=== PATIENT | male | born 1990 | race American Indian/Alaskan Native ===

== ENCOUNTER 2017-10-06 03:32 | Emergency (ER) | payer BC ==
[2017-10-06 04:28] VITALS: BP 126/78
== END 2017-10-06 07:37 | disposition left against medical advice (07) ==
LOC: ED 03:32
DX: H57.8 Other specified disorders of eye and adnexa (principal); Z53.21 Procedure and treatment not carried out due to patient leaving prior to being seen by health care provider

== ENCOUNTER 2018-10-17 23:47 | Emergency (ER) | payer BC, OTHER ==
[2018-10-18 00:06] VITALS: BP 120/61
--- NOTE | 2018-10-18 02:40 | Emergency Department Report ---
ED General Adult HPI - General Chief complaint: Headache Stated complaint: MOTT Time Seen by Provider: 10/18/18 02:35 Source: patient Mode of arrival: Ambulatory Limitations: No Limitations - History of Present Illness Initial comments: 28-year-old [place] male, history of migraine headaches since emergency department complaining of similar migraine episode of his usual headaches which typically resolve, medication last migraine was over a year ago. This migraine has been to emerge causing some occipitoparietal dull throbbing pain, which is improved but still present now. His friend who plays for the [employer] 25 years old had similar symptoms and was found to have had an aneurysm and now a vegetative state, just primary nidus for Mr. dejeuss, to the emergency department make sure that he has no tumors or an abnormal glucose in the brain with CT scan. Location: head Radiation: non-radiation, back Severity scale (0 -10): 7 Quality: dull Consistency: constant Improves with: none Worsens with: none Associated Symptoms: denies: chest pain, cough, diaphoresis, fever/chills, loss of appetite, malaise, nausea/vomiting, rash, shortness of breath, syncope, weakness - Related Data Previous Rx's Medication Instructions Recorded Last Taken Type Butalb/Acetaminophen/Caffeine 1 cap PO Q8HR PRN #15 cap 10/18/18 Unknown Rx [Fioricet 50-300-40 mg CAP] Allergies Allergy/AdvReac Type Severity Reaction Status Date / Time No Known Allergies Allergy Unverified 10/06/17 04:27 ED Review of Systems ROS: Stated complaint: MOTT Other details as noted in HPI Constitutional: denies: chills, fever Eyes: denies: eye pain, eye discharge, vision change ENT: denies: ear pain, throat pain Respiratory: denies: cough, shortness of breath, wheezing Cardiovascular: denies: chest pain, palpitations Endocrine: no symptoms reported Gastrointestinal: denies: abdominal pain, nausea, diarrhea Genitourinary: denies: urgency, dysuria Musculoskeletal: denies: back pain, joint swelling, arthralgia Skin: denies: rash, lesions Neurological: headache. denies: weakness, paresthesias Psychiatric: denies: anxiety, depression Hematological/Lymphatic: denies: easy bleeding, easy bruising ED Past Medical Hx - Past Medical History Previous Medical History?: No - Surgical History Past Surgical History?: No - Social History Smoking Status: Never Smoker Substance Use Type: None - Medications Home Medications: Home Medications Medication Instructions Recorded Confirmed Last Taken Type Butalb/Acetaminophen/Caffeine 1 cap PO Q8HR PRN #15 cap 10/18/18 Unknown Rx [Fioricet 50-300-40 mg CAP] ED Physical Exam - General Limitations: No Limitations General appearance: alert, in no apparent distress - Head Head exam: Present: atraumatic, normocephalic - Eye Eye exam: Present: normal appearance, PERRL, EOMI, other. Absent: nystagmus Pupils: Present: normal accommodation (negative funduscopic examination.) - ENT ENT exam: Present: normal exam, mucous membranes moist, TM's normal bilaterally - Neck Neck exam: Present: normal inspection, full ROM. Absent: tenderness, lymphadenopathy - Respiratory Respiratory exam: Present: normal lung sounds bilaterally. Absent: respiratory distress, wheezes, rales, chest wall tenderness, accessory muscle use, decreased breath sounds - Cardiovascular Cardiovascular Exam: Present: regular rate, normal rhythm. Absent: systolic murmur, diastolic murmur, rubs, gallop - GI/Abdominal GI/Abdominal exam: Present: soft, normal bowel sounds. Absent: tenderness, guarding - Rectal Rectal exam: Present: deferred - Extremities Exam Extremities exam: Present: normal inspection - Back Exam Back exam: Present: normal inspection - Neurological Exam Neurological exam: Present: alert, oriented X3, CN II-XII intact, normal gait - Psychiatric Psychiatric exam: Present: normal affect, normal mood - Skin Skin exam: Present: warm, dry, intact, normal color. Absent: rash ED Course Vital Signs 10/18/18 10/18/18 00:05 00:11 Temperature 97.9 F 98.7 F Pulse Rate 50 L 50 L Respiratory 18 18 Rate Blood Pressure 120/61 120/61 O2 Sat by Pulse 97 97 Oximetry Critical care attestation.: If time is entered above; I have spent that time in minutes in the direct care of this critically ill patient, excluding procedure time. ED Disposition Clinical Impression: Cephalgia Disposition: DC-01 TO HOME OR SELFCARE Is pt being admited?: No Does the pt Need Aspirin: No Condition: Stable Instructions: Acute Headache (ED) Prescriptions: Butalb/Acetaminophen/Caffeine [Fioricet 50-300-40 mg CAP] 1 cap PO Q8HR PRN #15 cap PRN Reason: Headache Referrals: MYRTLE MARCELINO MD [Primary Care Provider] - 3-5 Days
--- NOTE | 2018-10-18 04:06 | Cat Scan Report ---
PROCEDURE: CT HEAD/BRAIN WO CON TECHNIQUE: Routine axial imaging was obtained of the brain without IV contrast. HISTORY: headache COMPARISONS: None FINDINGS: There is no evidence of acute stroke or hemorrhage. The ventricular system is appropriate in size and is symmetric. The visualized sinuses are clear. The mastoid air cells are well pneumatized. The calv arium appears intact. IMPRESSION: Within normal limits.. This document is electronically signed by Juan Carlos Mccarthy MD., October 18 2018 04:04:07 AM ET
== END 2018-10-18 04:45 | disposition home or self-care (01) ==
LOC: ED 23:47
DX: R51 Headache (principal)
CPT/HCPCS: 70450

== ENCOUNTER 2022-03-25 02:30 | Emergency (ER) | payer OTHER ==
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
[2022-03-25] MEDS ORDERED: HYDROcodone/ACETAMINOPHEN 5-325 MG TAB PO ONE (04:08)
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
[2022-03-25 05:29] VITALS: BP 135/87
== END 2022-03-25 05:33 ==
LOC: ED 02:30
DX: S62.102A Fracture of unspecified carpal bone, left wrist, initial encounter for closed fracture (principal); W19.XXXA Unspecified fall, initial encounter; Y93.89 Activity, other specified; Y92.89 Other specified places as the place of occurrence of the external cause; Y99.8 Other external cause status
CPT/HCPCS: 99284